=== PATIENT | male | born 1985 | race Caucasian/White ===

== ENCOUNTER 2023-02-21 00:41 | Emergency (ER) | payer MEDICAID ==
[~2023-02-21] VITALS: Ht 180.3 cm; Wt 86.4 kg
[2023-02-21 01:04] VITALS: BP 134/86; PULSE 81; RESP 19; TEMP 98.1; O2SAT 98
[2023-02-21 01:32] LABS: HEMOGLOBIN 15.8 g/dl (14.0-17.9); MEAN CORPUSCULAR HEMOGLOBIN 31.3 PG (27.0-31.0); RED CELL DISTRIBUTION WIDTH 13.5 % (11.5-14.5)
[2023-02-21 01:33] LABS: BASOPHILS % (AUTO) 0.3 % (0-1); EOSINOPHILS # (AUTO) 0.1 X10'3 (0-0.9); EOSINOPHILS % (AUTO) 1.6 % (0-6); HEMATOCRIT 45.9 % (42.0-52.0); LYMPHOCYTES # (AUTO) 1.8 X10'3 (1.1-4.8); LYMPHOCYTES % (AUTO) 20.4 % (21-51); MEAN CORPUSCULAR HGB CONC 34.5 g/dL (33.0-36.5); MEAN CORPUSCULAR VOLUME 90.8 FL (78-98); MEAN PLATELET VOLUME 9.3 FL (7.4-10.4); MONOCYTES # (AUTO) 0.5 X10'3 (0-0.9); MONOCYTES % (AUTO) 6.1 % (2-12); NEUTROPHILS # (AUTO) 6.4 X10'3 (1.8-7.7); NEUTROPHILS % (AUTO) 71.6 % (42-75); PLATELET COUNT 231 X10'3 (140-440); RED BLOOD COUNT 5.06 X10'6 (4.70-6.10); WHITE BLOOD COUNT 8.9 X10'3 (4.5-11.0)
[2023-02-21 01:44] LABS: ALANINE AMINOTRANSFERASE 29 U/L (12-78); ALBUMIN 4.1 G/DL (3.4-5.0); ALBUMIN/GLOBULIN RATIO 1.1 (1.1-1.5); ALKALINE PHOSPHATASE 133 IU/L (46-116); ANION GAP 9 (8-16); ASPARTATE AMINO TRANSFERASE 31 U/L (10-37); BILIRUBIN,TOTAL 0.4 MG/DL (0.1-1.0); BLOOD UREA NITROGEN 25 MG/DL (7-18); CHLORIDE 105 MMOL/L (99-107); CREATININE 0.96 MG/DL (0.60-1.10); GLUCOSE 100 MG/DL (70-104); LIPASE 27 U/L (16-77); POTASSIUM 3.8 MMOL/L (3.5-5.1); SODIUM 141 MMOL/L (135-145); TOTAL CARBON DIOXIDE 26.9 MMOL/L (24-32); TOTAL PROTEIN 7.9 G/DL (6.4-8.2); eCRCL 110 ML/MIN; eGFR 87 ML/MIN
[2023-02-21 02:00] LABS: BILIRUBIN,URINE NEGATIVE (Neg); GLUCOSE, URINE NEGATIVE (Neg); KETONES,URINE NEGATIVE (Neg); LEUKOCYTE ESTERASE ,URINE NEGATIVE (Neg); NITRITES, URINE NEGATIVE (Neg); OCCULT BLOOD,URINE NEGATIVE (Neg); PH,URINE 5.5 (4.8-8.0); PROTEIN,URINE NEGATIVE (Neg); UROBILINOGEN,URINE 0.2 E.U/dL (0.2-1.0)
[2023-02-21 02:09] LABS: COLOR,URINE DARK YELLOW (Yellow); UA COLLECTION TYPE URINAL
[2023-02-21 02:10] LABS: CLARITY,URINE SLIGHTLY CLOUDY (Clear); RBC,URINE 0-2 /HPF (0-2); WBC,URINE 0-4 /HPF (0-4)
[2023-02-21 02:14] LABS: AMORPHOUS URATES 1+; BACTERIA,URINE FEW /HPF (Neg); SQUAMOUS EPITHELIAL CELL,UR FEW /LPF (FEW)
[2023-02-21] MEDS ORDERED: mag hydrox/Alum hydrox/simeth 30ml oral suspension PO ONE (02:55)
[2023-02-21] MEDS: LIDOcaine Viscous 15ml cup MM PRN (03:02)
== END 2023-02-21 05:29 | disposition home or self-care (01) ==
LOC: ER 00:42
DX: R10.9 Unspecified abdominal pain (principal); K21.9 Gastro-esophageal reflux disease without esophagitis
CPT/HCPCS: 36415; 80053; 81001; 83690; 85025; 99283

== ENCOUNTER 2023-08-17 14:25 | Emergency (ER) | payer MEDICAID ==
[~2023-08-17] VITALS: Ht 180.3 cm; Wt 90.0 kg
[2023-08-17] MEDS: CefTRIAXone 1000mg IM Kit (w/lidocaine diluent) IM ONE (15:21)
[2023-08-17] MEDS ORDERED: AZIT250T83 PO (15:27)
[2023-08-17] MEDS ORDERED: IBUP-1985 PO (15:27)
[2023-08-17] MEDS ORDERED: PROM118S5 PO (15:28)
[2023-08-17] MEDS ORDERED: ALBU8HFA INH (15:28)
[2023-08-17 15:37] VITALS: BP 112/55; PULSE 99; RESP 18; TEMP 100; O2SAT 96
== END 2023-08-17 15:38 | disposition home or self-care (01) ==
LOC: ER 14:26
DX: J18.9 Pneumonia, unspecified organism (principal); K21.9 Gastro-esophageal reflux disease without esophagitis
CPT/HCPCS: 71045; 96372; 99283; J0696